=== PATIENT | male | born 1975 | race Caucasian/White ===

== ENCOUNTER 2019-07-14 18:14 | Inpatient (IN) ==
--- NOTE | 2019-07-14 18:51 | Emergency Department Note ---
Disposition Clinical Impression: Atrial fibrillation with RVR Disposition: Admitted As Inpatient Referrals: Toi Gayle DO [Primary Care Provider] - Forms: ED Satisfaction Letter Time of Disposition: 20:45 Arrhythmia/Palpitations HPI - General Chief Complaint: ED Arrhythmia/Palpitations Stated Complaint: new onset AFIB, VALERIA Time Seen by Provider: 07/14/19 18:30 Source: patient Mode of arrival: ambulatory Limitations: no limitations Nursing Notes Reviewed: Yes Vital Signs Reviewed: Yes - History of Present Illness HPI Narrative: Mr. Carrizales is a 44-year-old male past medical history presenting emergency department with new onset A. fib. He was found to be in A. fib at his PCPs office today, instructed to come the emergency department. He reports a 3 week history of intermittent dyspnea, fatigue, and intermittent cough. He denies chest pain or pressure, palpitations, lightheadedness, dizziness, falls, vision changes and going, weakness, abdominal pain, nausea, vomiting, diarrhea, dysuria, or edema. He did take some Mucinex earlier today to help with his cough. Denies taking other medications or [id number] supplements. He does admit to drinking 6-7 beers some nights after work, but does not drink every night. Denies any illicit drug use. - Related Data Home Medications Medication Instructions Recorded Confirmed No Known Home Drugs 07/14/19 07/14/19 Allergies Allergy/AdvReac Type Severity Reaction Status Date / Time No Known Allergies Allergy Verified 01/11/18 14:37 Review of Systems: Admits to intermittent dyspnea, cough, and fatigue. Denies chest pain or pressure, palpitations, lightheadedness, dizziness, falls, vision changes and going, weakness, abdominal pain, nausea, vomiting, diarrhea, dysuria, or edema Past Medical History - Past Medical History Medical history: Reports: no medical history Psychiatric history: Reports: no psych history - Social History Smoking Status: Never smoker Smokeless Tobacco Status: No Alcohol use: Reports: occasionally Drug use: Reports: none Physical Exam GEN: No acute distress, A&O3 HEAD: Atraumatic, normocephalic EYES: Pupils symmetric, sclera white, conjunctiva pink HEART: Irregularly irregular, normal S1 and S2, no murmurs LUNGS: Clear to auscultation bilaterally, no wheezes, rhonchi, or crackles ABD: Soft, nontender, nondistended, no guarding or rigidity EXT: No edema noted NEURO: No focal deficits, cooperative with exam - General General appearance: alert, in no apparent distress Course Vital Signs Temperature 98.8 F 07/14/19 18:37 Pulse Rate 173 07/14/19 18:37 Respiratory Rate 26 07/14/19 18:37 Blood Pressure 125/95 07/14/19 18:37 O2 Sat by Pulse Oximetry 97 07/14/19 18:37 Temperature 98.8 F 07/14/19 18:37 Pulse Rate 94 07/14/19 20:12 Respiratory Rate 16 07/14/19 20:12 Blood Pressure 120/82 07/14/19 20:12 O2 Sat by Pulse Oximetry 100 07/14/19 20:12 Oxygen Delivery Oxygen Delivery Room Air Arrhythmia/Palpitations - [facility] Narrative Medical decision making narrative: 44-year-old male with new onset A. fib with RVR. EKG shows A. fib with RVR, HR 179, and no ischemic changes. Labs show mild bilirubinemia, but otherwise unremarkable CBC, BMP, and hepatic panel. Troponin is negative. Chest x-ray with no acute cardiopulmonary abnormalities. Patient was placed on a Cardizem drip and heart rate decreased to 94, but remains in atrial fibrillation. CHADS2-VASc equals 0, so no anticoagulation will be started this time. At this time there is no clear etiology for his A. fib, but this may be related to his alcohol use, as he frequently will drink at least 6-7 beers on several nights per week. Patient will be admitted to the hospital for further cardiac evaluation, and initiation of oral medications. Discussed the case with the admitting hospitalist, Dr. Howe, who is accepting of this patient. - Lab Data Result diagrams: 07/14/19 18:45 07/14/19 18:45 Lab Results 07/14/19 07/14/19 07/14/19 Range/Units 18:45 18:45 18:45 WBC 8.1 (4.3-11.1) K/mcL RBC 4.92 (4.19-5.50) M/mcL Hgb 15.4 (12.9-16.9) g/dL Hct 46.3 (37.5-50.1) % MCV 94.1 (83.0-100.0) fL MCH 31.3 (28.0-33.3) pg MCHC 33.3 (31.6-35.5) g/dL RDW 12.3 (11.5-14.5) % Plt Count 162 (140-400) K/mcL MPV 11.9 (9.4-12.4) fL Immature Gran % 0.1 (0-4) % Seg Neutrophils % 55.5 % Lymphocytes % 34.9 % Monocytes % 8.4 % Eosinophils % 0.6 % Basophils % 0.5 % Neutrophils # 4.5 (1.6-8.9) K/mcL Lymphocytes # 2.8 (0.6-4.6) K/mcL Monocytes # 0.7 (0.0-1.3) K/mcL Eosinophils # 0.1 (0.0-0.6) K/mcL Basophils # 0.0 (0.0-0.2) K/mcL PT 13.9 H (9.4-12.1) Seconds INR 1.2 APTT 32.8 (26.0-36.0) Seconds Sodium 140 (136-145) mEq/L Potassium 4.5 (3.5-5.1) mEq/L Chloride 106 (98-107) mEq/L Carbon Dioxide 26 (23-29) mEq/L BUN 17 (6-20) mg/dL Creatinine 1.10 (0.70-1.30) mg/dL Est GFR ( Amer) > 60 (> 60) Est GFR (Non-Af Amer) > 60 (> 60) BUN/Creatinine Ratio 15 (6-26) Glucose 94 (70-105) mg/dL Calculated Osmolality 291 (280-300) Calcium 9.7 (8.6-10.3) mg/dL Total Bilirubin 1.8 H (0.3-1.0) mg/dL Direct Bilirubin 0.3 H (0.0-0.2) mg/dL Indirect Bilirubin 1.5 H (0.0-1.2) mg/dL AST 30 (13-39) Units/L ALT 46 (7-52) Units/L Alkaline Phosphatase 68 (34-104) Units/L Troponin I < 0.03 (< 0.04) ng/mL Serum Total Protein 7.4 (6.4-8.9) g/dL Albumin 4.8 (3.5-5.7) g/dL Globulin 2.6 (2.4-3.5) g/dL Albumin/Globulin Ratio 1.8 (1.1-2.2) TSH 2.254 (0.340-5.600) mcIU/mL
[2019-07-14 19:03] LABS: Basophils % 0.5 %; Eosinophils # 0.1 K/mcL (0.0-0.6); Eosinophils % 0.6 %; Hematocrit 46.3 % (37.5-50.1); Hemoglobin 15.4 g/dL (12.9-16.9); Immature Granulocytes % 0.1 % (0-4); Lymphocytes # 2.8 K/mcL (0.6-4.6); Lymphocytes % 34.9 %; Mean Corpuscular HGB Conc 33.3 g/dL (31.6-35.5); Mean Corpuscular Hemoglobin 31.3 pg (28.0-33.3); Mean Corpuscular Volume 94.1 fL (83.0-100.0); Mean Platelet Volume 11.9 fL (9.4-12.4); Monocytes # 0.7 K/mcL (0.0-1.3); Monocytes % 8.4 %; Neutrophils # 4.5 K/mcL (1.6-8.9); Platelet Count 162 K/mcL (140-400); Red Blood Count 4.92 M/mcL (4.19-5.50); Red Cell Distribution Width 12.3 % (11.5-14.5); Segmented Neutrophils % 55.5 %; White Blood Count 8.1 K/mcL (4.3-11.1)
[2019-07-14 19:09] LABS: INR 1.2; Prothrombin Time 13.9 Seconds (9.4-12.1)
[2019-07-14 19:12] LABS: Activated Partial Thrombo Time 32.8 Seconds (26.0-36.0)
[2019-07-14 19:23] LABS: Alanine Aminotransferase 46 Units/L (7-52); Albumin 4.8 g/dL (3.5-5.7); Albumin/Globulin Ratio 1.8 (1.1-2.2); Alkaline Phosphatase 68 Units/L (34-104); Aspartate Amino Transferase 30 Units/L (13-39); BUN/Creatinine Ratio 15 (6-26); Bilirubin,Direct 0.3 mg/dL (0.0-0.2); Bilirubin,Indirect 1.5 mg/dL (0.0-1.2); Bilirubin,Total 1.8 mg/dL (0.3-1.0); Blood Urea Nitrogen 17 mg/dL (6-20); Calcium 9.7 mg/dL (8.6-10.3); Carbon Dioxide 26 mEq/L (23-29); Chloride 106 mEq/L (98-107); Globulin 2.6 g/dL (2.4-3.5); Glucose 94 mg/dL (70-105); Osmolality,Calculated 291 (280-300); Potassium 4.5 mEq/L (3.5-5.1); Sodium 140 mEq/L (136-145); Total Protein 7.4 g/dL (6.4-8.9); Troponin I < 0.03 ng/mL (< 0.04); eGFR For African Americans > 60 (> 60); eGFR For Non-African Americans > 60 (> 60)
--- NOTE | 2019-07-14 19:28 | Emergency Department Note ---
Disposition Clinical Impression: Atrial fibrillation with RVR Disposition: Admitted As Inpatient Condition: Fair Forms: ED Satisfaction Letter Time of Disposition: 20:49 General Adult HPI - General Chief complaint: ED Arrhythmia/Palpitations Stated complaint: new onset AFIB, VALERIA Time Seen by Provider: 07/14/19 18:30 Source: patient Mode of arrival: ambulatory Limitations: no limitations - History of Present Illness Pain Scale: 0 - Related Data Home Medications Medication Instructions Recorded Confirmed No Known Home Drugs 07/14/19 07/14/19 Allergies Allergy/AdvReac Type Severity Reaction Status Date / Time No Known Allergies Allergy Verified 01/11/18 14:37 Past Medical History - Past Medical History Medical history: Reports: no medical history Psychiatric history: Reports: no psych history - Social History Smoking Status: Never smoker Smokeless Tobacco Status: No Alcohol use: Reports: occasionally Drug use: Reports: none Physical Exam - General Limitations: no limitations General appearance: alert, in no apparent distress Course Vital Signs Temperature 98.8 F 07/14/19 18:37 Pulse Rate 173 07/14/19 18:37 Respiratory Rate 26 07/14/19 18:37 Blood Pressure 125/95 07/14/19 18:37 O2 Sat by Pulse Oximetry 97 07/14/19 18:37 Temperature 98.8 F 07/14/19 18:37 Pulse Rate 94 07/14/19 20:12 Respiratory Rate 16 07/14/19 20:12 Blood Pressure 120/82 07/14/19 20:12 O2 Sat by Pulse Oximetry 100 07/14/19 20:12 Oxygen Delivery Oxygen Delivery Room Air Medical Decision Making - Lab Data Result diagrams: 07/14/19 18:45 07/14/19 18:45 Lab Results 07/14/19 07/14/19 07/14/19 Range/Units 18:45 18:45 18:45 WBC 8.1 (4.3-11.1) K/mcL RBC 4.92 (4.19-5.50) M/mcL Hgb 15.4 (12.9-16.9) g/dL Hct 46.3 (37.5-50.1) % MCV 94.1 (83.0-100.0) fL MCH 31.3 (28.0-33.3) pg MCHC 33.3 (31.6-35.5) g/dL RDW 12.3 (11.5-14.5) % Plt Count 162 (140-400) K/mcL MPV 11.9 (9.4-12.4) fL Immature Gran % 0.1 (0-4) % Seg Neutrophils % 55.5 % Lymphocytes % 34.9 % Monocytes % 8.4 % Eosinophils % 0.6 % Basophils % 0.5 % Neutrophils # 4.5 (1.6-8.9) K/mcL Lymphocytes # 2.8 (0.6-4.6) K/mcL Monocytes # 0.7 (0.0-1.3) K/mcL Eosinophils # 0.1 (0.0-0.6) K/mcL Basophils # 0.0 (0.0-0.2) K/mcL PT 13.9 H (9.4-12.1) Seconds INR 1.2 APTT 32.8 (26.0-36.0) Seconds Sodium 140 (136-145) mEq/L Potassium 4.5 (3.5-5.1) mEq/L Chloride 106 (98-107) mEq/L Carbon Dioxide 26 (23-29) mEq/L BUN 17 (6-20) mg/dL Creatinine 1.10 (0.70-1.30) mg/dL Est GFR ( Amer) > 60 (> 60) Est GFR (Non-Af Amer) > 60 (> 60) BUN/Creatinine Ratio 15 (6-26) Glucose 94 (70-105) mg/dL Calculated Osmolality 291 (280-300) Calcium 9.7 (8.6-10.3) mg/dL Total Bilirubin 1.8 H (0.3-1.0) mg/dL Direct Bilirubin 0.3 H (0.0-0.2) mg/dL Indirect Bilirubin 1.5 H (0.0-1.2) mg/dL AST 30 (13-39) Units/L ALT 46 (7-52) Units/L Alkaline Phosphatase 68 (34-104) Units/L Troponin I < 0.03 (< 0.04) ng/mL Serum Total Protein 7.4 (6.4-8.9) g/dL Albumin 4.8 (3.5-5.7) g/dL Globulin 2.6 (2.4-3.5) g/dL Albumin/Globulin Ratio 1.8 (1.1-2.2) TSH 2.254 (0.340-5.600) mcIU/mL Critical Care Time Critical Care Time: Yes Total Critical Care Time: 30 Attestation: 30 minutes of critical care time were spent with the patient atrial fibrillation with rapid ventricular response with a rate of 190 and Cardizem bolus, Cardizem drip, reassessed the patient, discussion with hospitalist for admission Attestation Statement - Attestation Attestation: I saw and evaluated the patient and and reviewed the resident's note/PA note/ELECTRONIC VIDEO GAMES SERVICER note, and I agree with the findings and plan. I personally supervised and was present for the vargas/critical portions of any procedures. The medical decision- making was reviewed with the PLATE MILL HAND/PA/Advanced Practice Nurse/Resident Physician. I agree with the documented findings, disposition and treatment plan as described except to the extent set forth below. The patient presents with intermittent shortness of breath for the last several weeks and on arrival here is found have atrial fibrillation with rapid ventricular response with a rate of 179 bpm and the patient's EKG does not show acute ischemic change. He does drink alcohol not on a daily basis but can drink up to 15 or 20 beers at a time and this could be from a holiday heart syndrome but we will also further evaluate with other labs including electrolytes, troponin, thyroid testing and the patient will be admitted based on the new onset and the high heart rate and the patient is given a Cardizem bolus 20 mg and a drip at 10 mg an hour and I did recheck on the patient and at this time his heart rate has decreased and is currently 97 bpm. He is here with his . 1928
[2019-07-14 19:36] LABS: Thyroid Stimulating Hormone 2.254 mcIU/mL (0.340-5.600)
[2019-07-15] MEDS ORDERED: Naloxone 0.4 MG/ML INJ IVP PRN (03:17)
[2019-07-15] MEDS ORDERED: *HR* LORazepam 2 MG/ML VIAL IVP PRN ×3 (03:19)
--- NOTE | 2019-07-15 03:24 | Internal Med History&Physical ---
Date of Encounter: 07/15/19 Time of Encounter: 03:03 Internal Medicine - H&P: HPI Chief complaint: New onset atrial fibrillation Admitted From: Emergency Dept Plans for Post Hospital Care: Home History of present illness: Mr. Carrizales is a 44 year old male Patient presented to the emergency department with a 3 week history of shortness of breath. He had been experiencing worsening shortness of breath particularly with exertion but denies feeling palpitations. He had never experienced anything quite like this before, and made an appointment to see his primary care physician. At that appointment, he was found to be in atrial fibrillation and was recommended to come to the emergency department for further evaluation. Emergency department vital signs notable for a pulse of 173, blood pressure 125/95, O2 saturation 97% on room air. CBC unremarkable BMP unremarkable Liver function tests indicated an elevated total bilirubin of 1.8, but normal AST and ALT. Initial troponin undetectable TSH 2.254 INR 1.2 Chest x-ray showed no acute abnormality. EKG: Atrial fibrillation with RVR, rate 179, QTC 477. In the emergency department patient was started on Cardizem drip, and admitted to the hospital for further management. Upon my evaluation, patient is resting comfortably in hospital bed in no acute distress. He denies chest pain, abdominal pain, nausea, vomiting, diarrhea and constipation. He denies previous history of cardiac problems. He also denies family history of cardiac problems as well including atrial fibrillation and heart attacks. He does not take medications regularly. He denies smoking and other drug use. He does however have significant alcohol use history, regularly drinking 7-8 beers daily. He denies having previously gone through alcohol withdrawal. He is a full code. Past Med Surg Social Fam HX - Past Medical History Medical history: no medical history Psychiatric history: no psych history - Social History Smoking Status: Never smoker Smokeless Tobacco Status: No Alcohol use: occasionally Drug use: none Internal Medicine - H&P: Meds No Known Home Drugs 07/14/19 [History] Allergy/AdvReac Type Severity Reaction Status Date / Time No Known Allergies Allergy Verified 01/11/18 14:37 All Systems PM: A 10-system review of systems was performed and is negative for pertinent findings except as documented above in the HPI. - Constitutional Vitals: Temp Pulse Resp BP Pulse Ox 97.8 F 98 16 130/85 99 07/14/19 22:06 07/14/19 22:06 07/14/19 22:06 07/14/19 22:06 07/14/19 23:39 General appearance: Present: cooperative, A&O X 3, pleasant, no acute distress, answers questions appropriately Exam: - - Head Head exam: Present: normal inspection - Eye Eye exam: Present: EOMI, normal appearance - Respiratory Respiratory exam: Present: CTAB. Absent: rales, respiratory distress, rhonchi, wheezes - Cardiovascular Cardiovascular exam: Present: irregular rhythm. Absent: diastolic murmur, sys tolic murmur - GI/Abdominal GI/Abdominal exam: Present: normal bowel sounds, soft. Absent: tenderness - Extremities Exam Extremities exam: Present: warm, radial pulses palpable and symmetrical. Absent: calf tenderness, pedal edema, tenderness - Neurological Exam Neurological exam: Present: no focal deficits, strengths equal and symetr throughout. Absent: motor sensory deficit, facial droop, speech deficit Additional comments: No tremor noted on exam - Skin Skin exam: Present: dry, normal color, warm Internal Med - H&P Results - Labs CBC & Chem 7: 07/14/19 18:45 07/14/19 18:45 Labs: Short CBC 07/14/19 Range/Units 18:45 WBC 8.1 (4.3-11.1) K/mcL Hgb 15.4 (12.9-16.9) g/dL Hct 46.3 (37.5-50.1) % Plt Count 162 (140-400) K/mcL Neutrophils # 4.5 (1.6-8.9) K/mcL BMP 07/14/19 18:45 Sodium 140 Potassium 4.5 Chloride 106 Carbon Dioxide 26 BUN 17 Creatinine 1.10 Glucose 94 Calcium 9.7 Cardiac Enzymes 07/14/19 Range/Units 18:45 Troponin I < 0.03 (< 0.04) ng/mL Liver Function 07/14/19 Range/Units 18:45 Total Bilirubin 1.8 H (0.3-1.0) mg/dL Direct Bilirubin 0.3 H (0.0-0.2) mg/dL AST 30 (13-39) Units/L ALT 46 (7-52) Units/L Alkaline Phosphatase 68 (34-104) Units/L Albumin 4.8 (3.5-5.7) g/dL - Impressions ITS Impressions Chest X-Ray 07/14/19 19:17 IMPRESSION: No acute abnormality. D/ / Woodrow Villeda MD / Woodrow Villeda MD Interpreting Provider: Woodrow Villeda MD - Assessment and Plan (1) Shortness of breath Current Visit: Yes Status: Acute Assessment and plan: Likely secondary to atrial fibrillation, now resolved. Oxygen saturation and vital signs have been stable since initiating atrial fibrillation treatment. Management of atrial fibrillation as below Continue to monitor (2) Atrial fibrillation with RVR Current Visit: Yes Status: Acute Assessment and plan: Rate has improved, but still atrial fibrillation. Patient was started on Car dizem by the emergency department. Cardiology consult in the morning Echocardiogram in the morning Cardiac monitoring Continue Cardizem (3) Alcohol use Current Visit: Yes Status: Acute Assessment and plan: Patient has history of alcohol use, usually 7-8 beers daily. Denies history of withdrawal. [facility] protocol Cardiac telemetry IV thiamine (4) Elevated liver enzymes Current Visit: Yes Status: Acute Assessment and plan: Patient's total bilirubin elevated at 1.8, likely secondary to alcohol use. No jaundice on exam. Repeat a.m. labs Consider right upper quadrant ultrasound (5) DVT prophylaxis Current Visit: Yes Status: Acute Assessment and plan: SCDs - Time Spent With Patient Total time spent is greater than 50% in coordination of care (as documented) at patient's floor/unit and/or counseling patient: Greater than 35 minutes
[2019-07-15 05:39] LABS: Hematocrit 40.4 % (37.5-50.1); Mean Corpuscular HGB Conc 33.9 g/dL (31.6-35.5); Mean Corpuscular Hemoglobin 31.4 pg (28.0-33.3); Mean Corpuscular Volume 92.7 fL (83.0-100.0); Mean Platelet Volume 11.9 fL (9.4-12.4); Platelet Count 131 K/mcL (140-400); Red Blood Count 4.36 M/mcL (4.19-5.50); Red Cell Distribution Width 12.3 % (11.5-14.5); White Blood Count 6.2 K/mcL (4.3-11.1)
[2019-07-15 05:56] LABS: Alanine Aminotransferase 38 Units/L (7-52); Albumin 3.9 g/dL (3.5-5.7); Albumin/Globulin Ratio 1.8 (1.1-2.2); Alkaline Phosphatase 64 Units/L (34-104); Aspartate Amino Transferase 26 Units/L (13-39); BUN/Creatinine Ratio 21 (6-26); Bilirubin,Direct 0.1 mg/dL (0.0-0.2); Bilirubin,Total 1.1 mg/dL (0.3-1.0); Blood Urea Nitrogen 22 mg/dL (6-20); Calcium 9.3 mg/dL (8.6-10.3); Carbon Dioxide 25 mEq/L (23-29); Chloride 105 mEq/L (98-107); Globulin 2.2 g/dL (2.4-3.5); Glucose 95 mg/dL (70-105); Osmolality,Calculated 293 (280-300); Potassium 3.9 mEq/L (3.5-5.1); Sodium 140 mEq/L (136-145); Total Protein 6.1 g/dL (6.4-8.9); eGFR For African Americans > 60 (> 60); eGFR For Non-African Americans > 60 (> 60)
[2019-07-15 06:21] LABS: Hemoglobin 13.7 g/dL (12.9-16.9)
[2019-07-15] MEDS ORDERED: Metoprolol XL (24 HR) Succ 25 MG TAB.ER.24H PO SCH (09:00)
--- NOTE | 2019-07-15 11:18 | Electrophysiology Consult Note ---
<Jovana Nelson - Last Filed: 07/15/19 11:25> Date of Encounter: 07/15/19 Time of Encounter: 11:00 Assessment and Plan (1) Atrial fibrillation with RVR Current Visit: Yes Status: Acute Newly detected afib with RVR; describes symptoms for at least 3 weeks which include orthopnea and palpitations. Troponin negative, TSH normal. No acute electrolyte abnormality. Reports heavy ETOH use 7-8 beers/day. Obtain TTE to evaluate structure and function. Recommend rate control for now, will add short-acting BB for now until HR are controlled. If EF reduced, will need to stop CCB. CHA2Ds Vasc=0. Echo pending. Will continue to follow. Discussion w patient/family: The assessment and plan as outlined above was discussed with the patient and/or family members who expressed understanding and agreement. All questions were answered. Thank you for involving us in the care of your patient. Please call with any questions. The patient will be discussed and reviewed with Dr. Rivas; changes to be made accordingly. History of Present Illness Consult date: 07/15/19 Requesting physician: Glen Howe Consult reason: Afib Chief complaint: Shortness of breath, palpitations History of present illness: Mr. Carrizales is a 44 year old male with no significant PMHx who presented to the ED with complaints of shortness of breath. He reports worsening symptoms over the past 3 weeks. Symptoms include palpitations and orthopnea. Upon arrival to the ED, ECG demonstrated atrial fibrillation with RVR, he was started on a cardizem gtt for rate control. He reports heavy ETOH use with 7-8 beers/day. No prior CV testing noted. Past Med Surg Social Fam HX - Past Medical History Attestation: Yes The following information was validated with the patient. Source: patient Medical history: no medical history Psychiatric history: no psych history - Past Surgical History Surgical History: non-contributory - Social History Smoking Status: Never smoker Smokeless Tobacco Status: No Alcohol use: occasionally Drug use: none - Family History Mother Living Status: Still Living Hx Family Cardiac Disorders: Yes (irregular heart rhythm) Father History Unknown: Yes Medications and Allergies No Known Home Drugs 07/14/19 [History] Allergy/AdvReac Type Severity Reaction Status Date / Time No Known Allergies Allergy Verified 01/11/18 14:37 All Systems Review: The remainder of the systems were reviewed and are negative - Cardiovascular Cardiovascular: as per HPI Physical Examination Vital Signs, Last 4 Hours Temp Pulse Resp BP Pulse Ox 07/15/19 07:44 97.3 F L 70 16 135/112 98 General: Conversant, No Apparent Distress HEENT: Atraumatic, Normocephaly, Mucus Membranes Moist Cardiac: Other (irregularly irregular) Lungs: Normal Breath Sounds Neuro: Alert and responsive Abdomen: Soft Skin: No rashes noted on visualized skin Musculoskeletal: No Chest Wall Tenderness Extremities: No Edema, Normal Pulses Results 07/15/19 05:14 07/15/19 05:14 Lab Results 07/14/19 07/14/19 07/14/19 18:45 18:45 18:45 WBC 8.1 Hgb 15.4 Hct 46.3 Plt Count 162 INR 1.2 APTT 32.8 Sodium 140 Potassium 4.5 Chloride 106 Carbon Dioxide 26 BUN 17 Creatinine 1.10 Glucose 94 Calcium 9.7 Total Bilirubin 1.8 H AST 30 ALT 46 Alkaline Phosphatase 68 Troponin I < 0.03 TSH 2.254 07/15/19 07/15/19 05:14 05:14 WBC 6.2 Hgb 13.7 D Hct 40.4 Plt Count 131 L INR APTT Sodium 140 Potassium 3.9 Chloride 105 Carbon Dioxide 25 BUN 22 H Creatinine 1.07 Glucose 95 Calcium 9.3 Total Bilirubin 1.1 H AST 26 ALT 38 Alkaline Phosphatase 64 Troponin I TSH Active Medications Heparin Sodium (Porcine) (Heparin) 5,000 unit SQ Q8HCO [facility]; Protocol Stop: 01/14/20 14:01 Diltiazem HCl 50 mg/ Sodium (Chloride) 50 mls @ 10 mls/hr IVC CONT ARMIN; Protocol Stop: 01/13/20 18:46 Last Infusion: 07/15/19 04:30 Dose: 7.5 mg/hr, 7.5 mls/hr Documented by: Thiamine HCl 100 mg/ Folic Acid 1 mg/ Multivitamins 10 ml / Sodium Chloride 511.2 mls @ 85.2 mls/hr IVPB DAILY@1800 ARMIN Stop: 07/17/19 23:59 Lorazepam (Ativan) 1 mg IVP Q1H PRN PRN Reason: Alcohol Withdrawal Stop: 01/14/20 03:20 Lorazepam (Ativan) 2 mg IVP Q4HR PRN PRN Reason: CIWA Score of 10-21 Stop: 01/14/20 03:20 Lorazepam (Ativan) 4 mg IVP Q4HR PRN PRN Reason: CIWA Score of 22-45 Stop: 01/14/20 03:20 Metoprolol Tartrate (Lopressor) 25 mg PO BID ARMIN Stop: 01/14/20 11:01 Naloxone HCl (Narcan) 0.4 mg IVP Q2MPRN PRN PRN Reason: SEE COMMENTS Stop: 01/14/20 03:18 - Imaging and Cardiology Echo: pending Other Results: 12 hour tele: avg HR=94 afib. Consult Discharge Plan - Plan Referrals: Toi Gayle DO [Primary Care Provider] - CHADS2-VASC Score - Score Age: Less than 65 Sex: Male CHF History: No Hypertension history: No Stroke/TIA/Thromboembolism Hx: No Vascular disease history: No Diabetes history: No Score: 0 <Hemant Rivas - Last Filed: 07/15/19 12:22> Date of Encounter: 07/15/19 - Attending Attestation I have personally performed a face to face evaluation on this patient. I have reviewed and agree with the care plan. History and Exam by me shows: Probably AF with RVR of several weeks duration. High risk for tachy- induced cardiomyopathy. Would rate control and eval. EF. Assessment and Plan Discussion w patient/family: The assessment and plan as outlined above was discussed with the patient and/or family members who expressed understanding and agreement. All questions were answered. Thank you for involving us in the care of your patient. Please call with any questions. History of Present Illness History of present illness: Mr. Carrizales is a 44 year old male All Systems Review: The remainder of the systems were reviewed and are negative Results 07/15/19 05:14 07/15/19 05:14 Lab Results 07/14/19 07/14/19 07/14/19 18:45 18:45 18:45 WBC 8.1 Hgb 15.4 Hct 46.3 Plt Count 162 INR 1.2 APTT 32.8 Sodium 140 Potassium 4.5 Chloride 106 Carbon Dioxide 26 BUN 17 Creatinine 1.10 Glucose 94 Calcium 9.7 Total Bilirubin 1.8 H AST 30 ALT 46 Alkaline Phosphatase 68 Troponin I < 0.03 TSH 2.254 07/15/19 07/15/19 05:14 05:14 WBC 6.2 Hgb 13.7 D Hct 40.4 Plt Count 131 L INR APTT Sodium 140 Potassium 3.9 Chloride 105 Carbon Dioxide 25 BUN 22 H Creatinine 1.07 Glucose 95 Calcium 9.3 Total Bilirubin 1.1 H AST 26 ALT 38 Alkaline Phosphatase 64 Troponin I TSH
[2019-07-15] MEDS ORDERED: *HR* Heparin 5,000 UNIT/ML VIAL SQ SCH (14:00)
[2019-07-15] MEDS ORDERED: Perflutren Lipid Microsphere 1.3 ML in 0.9 % Sodium Chloride 8.7 ML IVP ONE (14:18)
--- NOTE | 2019-07-15 16:14 | Event Note ---
Date of Encounter: 07/15/19 Time of Encounter: 16:12 I have seen and evaluated the patient at bedside. patient hemodynamically stable. CHADSVASC score 0. started on a bb, titrate cardizem drip off. will increase BB as needed for rate control. cardiology recommendations appreciated. will continue to follow up.
--- NOTE | 2019-07-15 17:34 | Electrocardiograph Report ---
[address] [address] Test Date: 2019-07-14 Pat Name: Kings Carrizales Department: [id number] Room: 2NE30 Gender: M Lard Renderer: : 1975 Requested By: Dru Villafuerte Order Number: [id number] Reading MD: Rayshawn Maria Measurements Intervals [place] Rate: 179 P: MT: QRS: -78 QRSD: 86 T: 52 QT: 276 QTc: 477 Interpretive Statements Atrial fibrillation with rapid V-rate Left anterior fascicular block Probable anteroseptal infarct, old Electronically Signed On 07-15-2019 17:32:12 EDT by Rayshawn Maria
[2019-07-15] MEDS: *HR* Enoxaparin 120 MG/0.8 ML SYRINGE SQ SCH (19:24)
[2019-07-15] MEDS: Thiamine (B-1) 100 MG, Folic Acid 1 MG, MVI, adult with vitamin K 10 ML in 0.9 % Sodi... IVPB SCH (20:40)
[2019-07-16] MEDS: *HR* Enoxaparin 120 MG/0.8 ML SYRINGE SQ SCH (06:38)
[2019-07-16] MEDS ORDERED: Verapamil 5 MG/2 ML VIAL ONE (07:18)
[2019-07-16] MEDS ORDERED: *HR* Midazolam HCl 2 MG/2 ML VIAL ONE (07:18)
[2019-07-16] MEDS ORDERED: 0.9 % Sodium Chloride 1,000 ML ONE (07:18)
[2019-07-16] MEDS ORDERED: Heparin 1,000 UNITS/500 mL 500 ML ONE (07:19)
[2019-07-16] MEDS ORDERED: Nitroglycerin 1,000 MCG/10 ML VIAL IV ONE (07:19)
[2019-07-16] MEDS ORDERED: Iopamidol 125 ML INFUS..BTL ONE (07:19)
[2019-07-16] MEDS ORDERED: *HR* Heparin 10,000 UNIT/10 ML VIAL ONE (07:19)
--- NOTE | 2019-07-16 08:39 | Pre-Sedation Evaluation ---
Pre-sedation evaluation - Pre-sedation checklist Date of procedure: 07/16/19 Procedure: heart cath Recent Vitals: Last Vital Signs Temp 98.2 F 07/16/19 06:57 Pulse 94 07/16/19 06:57 Resp 14 07/16/19 06:57 BP 97/70 07/16/19 06:57 Pulse Ox 95 07/16/19 06:57 H&P (including ROS) documented in medical record: Yes Previous reaction to sedatives/anesthetics: No Dietary Status: NPO after Midnight Airway Assessment: Patient can open mouth completely, TMJ function normal Dentition: No loose teeth or bridges Possible difficult airway: No ASA Classification *see protocol: CLASS II-Mild systemic disease Cardiac Registry (Cardio Only) - Functional Capacity Functional Capacity: >=4 METS without symptoms - Clincal Frailty Scale Clinical Frailty Scale: Well
[2019-07-16] MEDS ORDERED: Metoprolol XL (24 HR) Succ 50 MG TAB.ER.24H PO SCH (09:00)
--- NOTE | 2019-07-16 09:01 | Internal Med Progress Note ---
Hospitalist Progress Note - Encounter Date of Encounter: 07/16/19 Time of Encounter: 08:51 - Subjective Interval History: I have seen and evaluated the patient at bedside. patient reported the shortness of breath has resolved. denies chest pain, nausea or vomiting. HR continues to fluctuate from 100 at rest to the 140 with mild exertion. - Exam Vitals: Temp Pulse Resp BP Pulse Ox 98.2 F 94 14 97/70 95 07/16/19 06:57 07/16/19 06:57 07/16/19 06:57 07/16/19 06:57 07/16/19 06:57 Exam: Vitals: Reviewed General: Alert and oriented x4. In no distress Cardiovascular: Irregularly irregular, normal S1 & S2, no rubs, murmurs or gallops. Lungs: CTA b/l, no wheezes or crackles. Abdomen: Soft, non-tender, no rigidity. Extremities: No deformity, no edema or tenderness, no joint swelling or clubbing. Neurological: Normal cognition and motor skills. Rest of the physical exam is non contributory - Assessment and Plan (1) Atrial fibrillation with RVR Current Visit: Yes Status: Acute Assessment and Plan: HR sub-optimally controlled. CHADSVASC score 0 Plan will change metoprolol tartrate to succinate 50mg/PO daily. On cardizem drip. patient would benefit from a different drip (amiodarone drip) for rate control due to low EF 35-40%. drip selection per cardiology's discretion. scheduled for [facility] today. (2) Alcohol use Current Visit: Yes Status: Chronic Assessment and Plan: Patient not on withdrawals. Plan continue CIWA protocol. 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 patient is euvolemic. Plan: patient scheduled for LHC to r/o possible ischemic cause. c/w bb will add an qian if BP tolerates it. DVT Prophylaxis: Intermittent pneumatic compression for dvt prophylaxis. - Summary of Assessment and Plan Summary of Assessment and Plan: Patient to remain in the hospital due to a.fib with rvr, still on IV medications for rate control. scheduled for [facility] today. - Time Spent with Patient Total time spent is greater than 50% in coordination of care (as documented) at patient's floor/unit and/or counseling patient: Greater than 35 minutes (40) Plan of Care Discussed with: patient (his and the nurse.) Internal Medicine: Result - Labs CBC & Chem 7: 07/15/19 05:14 07/15/19 05:14 - ABG Interpretation ABG results: PT/INR, D-dimer PT 13.9 Seconds (9.4-12.1) H 07/14/19 18:45 - Impressions Impressions Echocardiogram 07/15/19 14:57 Impressions: LVEF 30-35%. Mildly dilated left ventricle. Indeterminate diastolic function. Definity echo contrast was used. There is no LV thrombus. Right ventricular size is normal with moderate reduction in systolic function. Mild mitral regurgitation. Mild tricuspid regurgitation. No pulmonary hypertension based on TR signal obtained. No prior echo for comparison. Left Ventricular Wall Motion: Rest Echo Findings The apex, apical inferior, mid inferior, basal inferior, apical anterior, mid anterior, basal anterior, apical septal, mid inferior septal, basal inferior septal, apical lateral, mid anterior lateral, basal anterior lateral, mid anterior septal, mid inferior lateral, basal anterior septal and basal inferior lateral kathleen were hypokinetic. Findings: Study Quality * Technically adequate exam. ECG Findings * Atrial fibrillation. Left Ventricle * LVEF 30-35%. * Mildly dilated left ventricle. * Indeterminate diastolic function. * Definity echo contrast was used. * There is no LV thrombus. Right Ventricle * Right ventricular size is normal with moderate reduction in systolic function. Left Atrium * Mildly dilated left atrium. Right Atrium * Normal right atrial size. Mitral Valve * Normal mitral valve structure. * No mitral stenosis. * Mild mitral regurgitation. Aortic Valve * No aortic regurgitation. * Aortic valve not well visualized. * No aortic stenosis. Tricuspid Valve * Normal tricuspid valve structure. * Mild tricuspid regurgitation. Pulmonic Valve * Pulmonic valve is not well visualized. * No pulmonic stenosis. * No pulmonic regurgitation. Pulmonary Artery * Pulmonary artery not well visualized. Aorta * Normally sized aortic root. Pericardium * There is no pericardial effusion present. Interatrial Septum * No evidence of PFO by color Doppler. IVC * The IVC is not well evaluated. Consult Discharge Plan - Plan Referrals: Toi Gayle DO [Primary Care Provider] - (3) CHF (congestive heart failure) Qualifiers: Heart failure type: systolic Heart failure chronicity: chronic Qualified Code(s): I50.22 - Chronic systolic (congestive) heart failure
[2019-07-16] MEDS ORDERED: Acetaminophen 325 MG TABLET PO PRN (09:32)
--- NOTE | 2019-07-16 09:32 | Event Note ---
Date of Encounter: 07/16/19 Time of Encounter: 09:31 - Cardiology Event Note Cath Completed LVEF 25% RCA normal LCA normal Recommend Medical therapy for af and chf.
--- NOTE | 2019-07-16 09:32 | Invasive Diagnostic Lab Proc ---
Name: Kings Carrizales Date of Study: 07/16/2019 Date: 1975 Ht: 76.0in Medical Record#: [id number] Age: 44 Wt: 260.15lb Gender: Male BSA: 2.48 Order #: [id number] BMI: 31.68 Physicians Procedure Physician: Arash Trujillo MD Referring MD: Referring MD: Staff Name Position Time In WoodruffSara RT (R) Monitor 08:58 AM Monse Givens RT (R) Scrub 08:58 AM Ruthann Moya RT (R) Scrub 08:58 AM Brain Vidales RN Crime Analyst 08:58 AM Procedures Performed Procedure L HRT ARTERY/VENTRICLE ANGIO Pre-Procedure Checklist Pt not NPO for procedure and MD aware. Blood Pressure: 97/70 Plan of Care Patient will tolerate the procedure without complications. Adequate level of comfort will be maintained. Hemodynamics will remain stable Patient will recover from procedure without complications. Respiratory function will be maintained. Cardiac rhythm will remain stable. Patient temperature will be maintained. Patient and/or family have verbalized understanding of the procedure. Patient Education Chief Complaint/Reason for Test: Cardiac Cath Developmental Category: Adult (18-64 years) Developmentally Appropriate for Age: Yes Learning Barriers: None Education Needs: Procedure Education Method: Verbal Information Taught: Cardiac Cath Educational Evaluation: Able to repeat information Intravenous Access Time IV Size Location DC'd Fluid/Drip Rate Units RN 07:12 AM 18g 1 1/4" Patent On Arrival Lt Antecubital 07:12 AM 20g 1 1/4" Patent On Arrival Lt Hand Allergies No Known Allergies Vital Signs Time BP (mmHg) HR (bpm) O2 Sat. RR (bpm) LOC 08:57 AM / % 5 = Fully awake and oriented or at pre-proc level 08:57 AM / % 4 = Oriented but drowsy 08:57 AM 85 / 63 144 92 % 21 09:04 AM 140 / 103 110 96 % 20 09:07 AM 139 / 104 106 96 % 19 09:12 AM 144 / 114 104 96 % 25 09:17 AM 132 / 104 123 95 % 32 Procedural Medications Time Medication Dose Units Method Given By 08:56 AM Oxygen 2 L/min nasal cannula Brain Vidales RN 08:58 AM Versed 2 mg Intravenous Brain Vidales RN 09:08 AM Lidocaine 2% 10 ml Subcutaneous Arash Trujillo MD ASA Classification: CLASS II- Mild systemic disease (i.e. well-controlled diabetes, hypertension, asthma, cigarette smoking) Jose Score Preprocedure Postprocedure Activity 2- Moves 4 extremities sustained head lift Activity 2- Moves 4 extremities sustained head lift Circulation 2- SBP +/= 20 points of pre-anesthetic level Circulation 2- SBP +/= 20 points of pre-anesthetic level Consciousness 2- Awake and alert oriented x 3 Consciousness 2- Awake and alert oriented x 3 O2 Saturation 2- Able to maintain O2 satruation of 92% on room air O2 Saturation 2- Able to maintain O2 satruation of 92% on room air Respiratory 2- Able to deep breathe and cough well Respiratory 2- Able to deep breathe and cough well Total Score 10 Total Score 10 Contrast Agent: Isovue Diagnostic Contrast: 75 ml Total Contrast: 75 ml Fluoro Dose: 15 mGy Procedure Log Time Note Enter By 08:56 AM CathStat 08:56 AM Vitals capture started with the following parameters, Patient=Adult, Interval=5 min, Initial Udsrhjzl=551 mmHg, Deflation Rate=3 mmHg, Cuff placed on Right Arm 08:56 AM Pt arrived to metallurgical lab technician 2 at 08:54 [facility] 08:56 AM Physician arrived 08:54 [facility] 08:56 AM ASA Class CLASS II- Mild systemic disease (i.e. well-controlled diabetes, hypertension, asthma, cigarette smoking) [facility] 08:56 AM Meet and grecarlos completed [facility] 08:56 AM Sign in performed according to hospital policy. Informed consent was obtained. [facility] :56 AM Time: 08:56 Oxygen on at 2 L/min per nasal cannula by Brain Vidales RN [facility] 0857 AM Time: 08:57 Patient comfortable and pain free: Yes [facility] 57 AM Time: 08:57LOC: 5 = Fully awake and oriented or at pre-proc level [facility] :57 AM Patient charges- Angio tray pack, Navilyst 3mm J, Pulse Oximetry and ACIST tubing and transducer [facility] 08:57 AM LC=375 bpm, NIBP=85/63 mmhg, SpO2=92.0 %, Resp=21 B/min 08:57 AM Procedure start 08:57 [email or web address] 08:57 AM Recorded ECG: PO=694 Condition=Condition 1 08:58 AM Hair removed from procedure site in holding area using clippers. Bilateral groin prepped with Chloraprep by Silvia العلي RN, then patient was draped. Skin intact. 08:58 AM Sara Woodruff RT (R) Position: Monitor Time in: :58 [facility] 08:58 AM Monse Givens RT (R) Position: Scrub Time in: :58 [facility] 08:58 AM Ruthann Moya RT (R) Position: Scrub Time in: :58 [facility] 08:58 AM Brain Vidales RN Position: Crime Analyst Time in: :58 [facility] 0858 AM Time: 08:58 Versed 2 mg Intravenous Given by Brain Vidales RN [facility] 09:04 AM QA=896 bpm, IKBR=983/103 mmhg, SpO2=96.0 %, Resp=20 B/min 09:04 AM Pressure channel 2 zeroed. 09:07 AM ML=985 bpm, JHEE=833/104 mmhg, SpO2=96.0 %, Resp=19 B/min 09:08 AM Time out was performed according to hospital policy. Conscious sedation and anesthesia was achieved (see medication log with in this report above) [facility]: Time: 09:08 10 ml Lidocaine 2% to right groin Subcutaneous Given by Arash Trujillo MD [facility] 09:10 AM Access obtained by percutaneous puncture. 6Fr 10cm Terumo [place] sheath placed in right Femoral artery. [id number] 09:10 AM 0.035 145cm Navilyst 3mmJ wire [id number] [facility] 09:11 AM 6Fr FL 4 catheter inserted over the wire DNC 09:11 AM LCA angiography performed in multiple views. [facility] 09:11 Recorded Pressure: Ao, YP=674, Condition=Condition 1 (Aorta) Ao 110/92/101 09:12 AM CI=057 bpm, HJRJ=789/114 mmhg, SpO2=96.0 %, Resp=25 B/min 09:12 AM Time: 08:57LOC: 4 = Oriented but drowsy 09:12 AM Time: 08:57 Patient comfortable and pain free: Yes [facility] 09:12 AM Recorded Pressure: Ao, RU=462, Condition=Condition 1 (Aorta) Ao 117/92/105 09:12 AM Catheter removed 09:13 AM 6Fr FR 4 catheter inserted over the wire [facility] 09:14 AM RCA angiography performed in multiple views. 09:14 AM Recorded Pressure: Ao, VX=883, Condition=Condition 1 (Aorta) Ao 113/90/102 09:14 AM Catheter removed 09:14 AM 6Fr Pigtail catheter inserted over the wire [facility] 09:16 AM Recorded Pressure: LV, EC=468, Condition=Condition 1 (Left Ventricle) LV 116/17 09:16 AM Recorded Pressure: LV, MT=508, Condition=Condition 1 (Left Ventricle) LV 118/14/17 09:16 AM Catheter crossed the aortic valve and was selectively placed in the left ventricle. Pressures recorded on pullback for left heart catheterization. [facility] 09:16 AM Bolus angiogram of left Ventricle complete: hand injection. 09:16 AM Recorded Pressure: LV, Ao, WR=653, Condition=Condition 1 (Left Ventricle) LV 100/6/15, (Aorta) Ao 126/37/89 09:17 AM Catheter removed [facility]:17 AM YE=170 bpm, LQAJ=658/104 mmhg, SpO2=95.0 %, Resp=32 B/min 09:17 AM Bolus angiogram of right Femoral complete: hand injection. [facility] 09:17 AM Procedure completed at 09:17 07/16/2019 [facility]:17 AM Did you address RANDA flow and Dominance? YesCoronary Dominance: right [facility] 09:18 AM Sign out completed: Radiation Dose 173.23 mGy, 15.3 Gy/cm2 Fluoro Time: 1.2 Isovue 370 - 200ml contrast 75 ml given by Arash Trujillo MD. Complications: None. The patient was discharged out of the label operator in stable condition. Sedation minutes 19. Cardiac Rehab Consult needed: No. Confirmed administered medications: Yes [facility] 09:18 AM Isovue 370 - 125ml,1 Bottle(s) used. [facility] 09:18 AM Arterial sheath pulled, Perclose closure device used and was Successful [id number] S/N. [facility] 09:18 AM Estimated Blood Loss: minimal [facility] 09:19 AM Post ECG Atrial Fibrillation [facility] 09:19 AM Post Blood Pressure 132/104 [facility] 09:19 AM Information taught Cardiac Cath and Perclose [facility] 09:19 AM Education needs Plan of Care, Procedure, and Responsibilities of Patient in Care [facility] 09:19 AM Learning barriers :None [facility] 09:19 AM Education Methods Verbal [facility] 09:19 AM Education evaluation Able to repeat information [facility] 09:19 AM Site status No bleeding/ No Hematoma - Rt Groin as reported by Monse Givens RT (R) at 09:19 [facility] 09:19 AM Opsite applied [facility] 09:22 AM Delay to floor No [facility] 09:22 AM Family placed in consult room. [facility] 09:25 AM Report given to Ritika SINGLETON Pt taken to E Room #30. 09:25 [facility] 09:25 AM Patient out of room: 09:25 [facility] Complications Complication None Hemodynamics Pressures Site Systolic/A Wave Diastolic/V Wave Mean AO 110 92 101 AO 117 92 105 AO 113 90 102 LV 116 14 17 LV 118 14 17 LV 100 6 15 AO 126 37 89 Post Procedure Information Blood Pressure: 132/104 mmHg Rhythm: Atrial Fibrillation Post procedural instructions were given Closure Device Time Device Success/Fail 07/16/2019 9:22:00 AM Perclose ProGlide Successful Site Checks Time Location Status Staff Sheath In? Note 09:19 AM Rt Groin No bleeding/ No Hematoma Monse Givens RT (R) Pulses Time Site Pre-Procedure Post-Procedure Note 07/16/2019 7:12:00 AM Bilateral radial 2+ per floor nurse documentation 07/16/2019 7:12:00 AM Bilateral DP & PT 2+ per floor nurse documentation Updated by Sara Woodruff RT (R) on 07/16/2019 9:26:20 AM electronically signed on 07/16/2019 9:26:56 AM with status of Final
--- NOTE | 2019-07-16 14:38 | Event Note ---
Date of Encounter: 07/16/19 Time of Encounter: 13:00 - Cardiology Event Note Seen and examined. [facility] completed--non-obstructive CAD. NICMP, likely tachycardia induced vs. ETOH. EF 30-35%. [id number] (?HTN, CHF). Discussed with Dr. Rivas, recommend full AC. Will start Xarelto 20 mg daily. Guillaume check: $10/month with card after first month free. Patient updated and agreeable, will d/c therapeutic lovenox. HR remain elevated, on Toprol XL 50 mg daily. Again, avoid use of CCB given CMP. Will discuss and review with Dr. Rivas. Goal HR less than 100. Recommend rate control strategy with anticoagulation for now with follow-up with Dr. Rivas in 3-4 weeks.
[2019-07-16] MEDS ORDERED: Metoprolol XL (24 HR) Succ 25 MG TAB.ER.24H PO ONE (16:00)
[2019-07-16] MEDS: *HR* Rivaroxaban 10 MG TABLET PO SCH (17:08)
[2019-07-16] MEDS: Thiamine (B-1) 100 MG, Folic Acid 1 MG, MVI, adult with vitamin K 10 ML in 0.9 % Sodi... IVPB SCH (17:56)
[2019-07-17] MEDS ORDERED: Metoprolol XL (24 HR) Succ 50 MG TAB.ER.24H PO SCH ×2 (09:00)
--- NOTE | 2019-07-17 11:10 | Internal Med Progress Note ---
Hospitalist Progress Note - Encounter Date of Encounter: 07/17/19 Time of Encounter: 11:12 - Subjective Interval History: I have seen and evaluated the patient at bedside. Patient reported feeling well, denies chest pain, reported feeling slightly short of breath this morning when he woke up. denies abdominal pain, nausea or vomiting. - Exam Vitals: Temp Pulse Resp BP Pulse Ox 98.2 F 103 18 150/94 96 07/17/19 06:46 07/17/19 06:46 07/17/19 06:46 07/17/19 09:31 07/17/19 06:46 Exam: Vitals: Reviewed General: Alert and oriented x4. In no distress Cardiovascular: Irregularly irregular, normal S1 & S2, no rubs, murmurs or gallops. Lungs: CTA b/l, no wheezes or crackles. Abdomen: Soft, non-tender, no rigidity. NABS in all 4 quadrants. Extremities: No edema. Neurological: No focal neurological abnormalities. Rest of the physical exam is non contributory - Assessment and Plan (1) Atrial fibrillation with RVR Current Visit: Yes Status: Acute Assessment and Plan: HR sub-optimally controlled. CHADSVASC score 2 Plan increase metoprolol to 100mg/PO daily. on xarelto 20mg/PO daily for secondary stroke prevention cardiology recommendations appreciated. patient advised about making an appointment to have a sleep study as outpatient. (2) Alcohol use Current Visit: Yes Status: Chronic Assessment and Plan: dc CIWA protocol. patient has not received any medication from the CIWA protocol. no signs of withdrawals. (3) CHF (congestive heart failure) Current Visit: Yes Status: Chronic Assessment and Plan: Patient is euvolemic. c/w metoprolol and lisinopril fluids restriction to 1.5 litters a day strict intake and output plus daily weight. DVT Prophylaxis: Intermittent pneumatic compression. - Summary of Assessment and Plan Summary of Assessment and Plan: Patient to remain in the hospital as HR is not well controlled. titrating oral bb up. - Time Spent with Patient Total time spent is greater than 50% in coordination of care (as documented) at patient's floor/unit and/or counseling patient: Greater than 35 minutes (40) Plan of Care Discussed with: patient (and the nurse.) Internal Medicine: Result - Labs CBC & Chem 7: 07/15/19 05:14 07/15/19 05:14 - ABG Interpretation ABG results: PT/INR, D-dimer PT 13.9 Seconds (9.4-12.1) H 07/14/19 18:45 Consult Discharge Plan - Plan Referrals: Toi Gayle DO [Primary Care Provider] - (3) CHF (congestive heart failure) Qualifiers: Heart failure type: systolic Heart failure chronicity: chronic Qualified Code(s): I50.22 - Chronic systolic (congestive) heart failure
[2019-07-17] MEDS ORDERED: Metoprolol XL (24 HR) Succ 50 MG TAB.ER.24H PO ONE (11:39)
--- NOTE | 2019-07-17 11:44 | Cardiology Progress Note ---
Date of Encounter: 07/17/19 Time of Encounter: 11:42 Assessment and Plan (1) Atrial fibrillation with RVR Current Visit: Yes Status: Acute Newly detected afib with RVR; describes symptoms for at least 3 weeks which include orthopnea and palpitations. Troponin negative, TSH normal. No acute electrolyte abnormality. Reports heavy ETOH use 7-8 beers/day. TTE LVEF 30-35%. Mildly dilated LV. Indeterminate diastolic function. Definity echo contrast was used. There is no LV thrombus. RV size is normal with moderate reduction in systolic function. Mild MR. Mild TR. No phtn. [id number]=[id number] (?HTN, CHF). Discussed with Dr. Rivas, recommended full AC. Will start Xarelto 20 mg daily. Guillaume check: $10/month with card after first month free. Patient updated and agreeable. Currently on Toprol XL 100mg daily and still RVR. Will increase Toprol XL to 150mg daily. Goal HR <100bpm. If cannot rate control, may need to have EDIS guided DCCV prior to d/c. Avoid CCB given CMP. Will continue to follow. (2) NICM (nonischemic cardiomyopathy) Current Visit: Yes Status: Acute LHC completed--non-obstructive CAD. NICMP, likely tachycardia induced vs. ETOH. EF 30-35%. Right femoral access site healing well. No bleeding, hematoma or ecchymosis noted. Euvolemic on exam. Continue BB and ACEi. Discussion w patient/family: The assessment and plan as outlined above was discussed with the patient and/or family members who expressed understanding and agreement. All questions were answered. Thank you for involving us in the care of your patient. Please call with any questions. I will discuss all the above with Dr. Sara Rivas and make changes as necessary. Subjective Principal diagnosis: CMP, A-Fib Interval history: Reports shortness of breath this AM. Denies chest pain. Objective Vital Signs, Last 4 Hours Temp Pulse Resp BP Pulse Ox 07/17/19 11:16 98.3 F 105 16 155/90 97 07/17/19 09:31 150/94 Vital Signs Temp Pulse Resp BP Pulse Ox 07/17/19 11:16 98.3 F 105 16 155/90 97 07/17/19 09:31 150/94 07/17/19 06:46 98.2 F 103 18 150/94 96 07/17/19 05:13 98.9 F 100 14 133/94 96 07/17/19 00:29 98.2 F 97 15 130/98 91 07/16/19 20:55 98.3 F 120 16 142/99 95 07/16/19 20:44 95 07/16/19 20:22 98.3 F 130 16 142/99 95 07/16/19 15:41 98.6 F 120 14 118/99 97 07/16/19 14:00 92 141/100 95 07/16/19 12:00 75 131/86 94 Intake and Output 07/16/19 07/17/19 07/17/19 23:59 07:59 15:59 Intake Total 240 / 877.2 511.2 / 511.2 Output Total 0 / 0 0 / 0 Balance 240 / 877.2 511.2 / 511.2 Intake: IV Fluids 511.2 / 511.2 Cardizem 50 MG In 0.9 % Sodium 0 / 0 Chloride 40 ML @ 10 MG/HR 10 mls/hr IVC CONT [facility] Rx#: [id number] Vitamin B-1 100 MG Folvite 1 MG 511.2 / 511.2 M.v.i. Adult 10 ml In 0.9 % Sodium Chloride 500 ML @ 85.2 mls/hr IVPB DAILY@1800 [facility] Rx#: [id number] Oral 240 / 360 0 / 0 Output: Urine 0 / 0 0 / 0 Other: Meal Dinner Percent of Meal Consumed 90% Weight 117.8 kg Patient Weight 07/17/19 23:59 Weight 117.8 kg General: Conversant, No Apparent Distress HEENT: Atraumatic, Normocephaly, Mucus Membranes Moist Neck: Normal carotid pulses Cardiac: Other (irregularly irregular) Lungs: Normal Breath Sounds, No Wheeze, Rales, Rhonchi Neuro: Alert and responsive, No focal deficits noted Abdomen: Soft, Non-Tender Skin: Other (right femoral access site healing well. No bleeding, hematoma or ecchymosis noted.) Musculoskeletal: No Chest Wall Tenderness Extremities: No Clubbing, No Cyanosis, No Edema, Normal Pulses Results 07/15/19 05:14 07/15/19 05:14 Active Medications Acetaminophen (Tylenol) 650 mg PO Q6HR PRN PRN Reason: Mild Pain Stop: 01/15/20 09:33 Thiamine HCl 100 mg/ Folic Acid 1 mg/ Multivitamins 10 ml / Sodium Chloride 511.2 mls @ 85.2 mls/hr IVPB DAILY@1800 [facility] Stop: 07/17/19 23:59 Last Infusion: 07/17/19 00:01 Dose: Infused Documented by: Lisinopril (Zestril) 5 mg PO DAILY [facility]; Protocol Stop: 01/16/20 09:01 Last Admin: 07/17/19 09:22 Dose: 5 mg Documented by: Metoprolol Succinate (Toprol Xl) 100 mg PO DAILY [facility] Stop: 01/16/20 09:01 Last Admin: 07/17/19 09:22 Dose: 100 mg Documented by: Metoprolol Succinate (Toprol Xl) 50 mg PO ONCE ONE Stop: 07/17/19 11:40 Naloxone HCl (Narcan) 0.4 mg IVP Q2MPRN PRN PRN Reason: SEE COMMENTS Stop: 01/14/20 03:18 Rivaroxaban (Xarelto) 20 mg PO 1700 [facility] Stop: 01/15/20 17:01 Last Admin: 07/16/19 17:08 Dose: 20 mg Documented by: - Imaging and Cardiology Echo: report reviewed Cardiac cath: report reviewed - EKG Interpretation EKG results cardiology: other (12 hr tele AVG HR 104, A-Fib) Consult Discharge Plan - Plan Referrals: Toi Gayle DO [Primary Care Provider] -
[2019-07-17] MEDS ORDERED: Metoprolol XL (24 HR) Succ 25 MG TAB.ER.24H PO ONE (16:00)
[2019-07-17] MEDS: *HR* Rivaroxaban 10 MG TABLET PO SCH (17:23)
[2019-07-17] MEDS: Thiamine (B-1) 100 MG, Folic Acid 1 MG, MVI, adult with vitamin K 10 ML in 0.9 % Sodi... IVPB SCH (18:27)
[2019-07-18] MEDS ORDERED: Metoprolol XL (24 HR) Succ 50 MG TAB.ER.24H PO SCH (09:00)
--- NOTE | 2019-07-18 11:00 | Cardiology Progress Note ---
Date of Encounter: 07/18/19 Time of Encounter: 10:00 Assessment and Plan (1) Atrial fibrillation with RVR Current Visit: Yes Status: Acute Newly detected afib with RVR; describes symptoms for at least 3 weeks which include orthopnea and palpitations. Troponin negative, TSH normal. No acute electrolyte abnormality. Reports heavy ETOH use 7-8 beers/day. TTE LVEF 30-35%. Mildly dilated LV. Indeterminate diastolic function. Definity echo contrast was used. There is no LV thrombus. RV size is normal with moderate reduction in systolic function. Mild MR. Mild TR. No phtn. [id number]=[id number] (?HTN, CHF). Discussed with Dr. Rivas, recommended full AC. Xa relto 20 mg daily. Guillaume check: $10/month with card after first month free. Patient updated and agreeable. Currently on Toprol XL 150mg daily and still RVR. Will increase Toprol XL to 150mg daily. Goal HR <100bpm. D/w Dr. Rivas; plan on EDIS guided DCCV in AM. Avoid CCB given CMP. NPO after MN except medications. Will continue to follow. Discussion w patient/family: The assessment and plan as outlined above was discussed with the patient and/or family members who expressed understanding and agreement. All questions were answered. Thank you for involving us in the care of your patient. Please call with any questions. The patient will be discussed and reviewed with Dr. Rivas; changes to be made accordingly. Subjective Principal diagnosis: CMP, A-Fib Interval history: Seen and examined. No new CV complaints overnight. Remains in RVR Objective Vital Signs, Last 4 Hours Temp Pulse Resp BP Pulse Ox 07/18/19 10:32 97.9 F 103 16 126/82 93 General: Conversant HEENT: Atraumatic, Normocephaly Cardiac: Other (tachycardiac; irregularly irregular) Lungs: Normal Breath Sounds Neuro: Alert and responsive Abdomen: Soft Skin: No rashes noted on visualized skin Musculoskeletal: No Chest Wall Tenderness Extremities: No Edema, Normal Pulses Results 07/15/19 05:14 07/15/19 05:14 Active Medications Acetaminophen (Tylenol) 650 mg PO Q6HR PRN PRN Reason: Mild Pain Stop: 01/15/20 09:33 Lisinopril (Zestril) 5 mg PO DAILY ARMIN; Protocol Stop: 01/16/20 09:01 Last Admin: 07/18/19 08:50 Dose: 5 mg Documented by: Metoprolol Succinate (Toprol Xl) 150 mg PO DAILY [facility] Stop: 01/17/20 09:01 Last Admin: 07/18/19 08:50 Dose: 150 mg Documented by: Naloxone HCl (Narcan) 0.4 mg IVP Q2MPRN PRN PRN Reason: SEE COMMENTS Stop: 01/14/20 03:18 Rivaroxaban (Xarelto) 20 mg PO 1700 [facility] Stop: 01/15/20 17:01 Last Admin: 07/17/19 17:23 Dose: 20 mg Documented by: - Imaging and Cardiology Echo: report reviewed Cardiac cath: report reviewed Other Results: 12 hour tele: avg QV=058 - EKG Interpretation EKG results cardiology: personally reviewed Consult Discharge Plan - Plan Referrals: Toi Gayle DO [Primary Care Provider] -
[2019-07-18] MEDS ORDERED: Metoprolol XL (24 HR) Succ 50 MG TAB.ER.24H PO ONE (11:04)
--- NOTE | 2019-07-18 12:09 | Internal Med Progress Note ---
Hospitalist Progress Note - Encounter Date of Encounter: 07/18/19 Time of Encounter: 12:07 - Subjective Interval History: I have seen and evaluated the patient at bedside. Patient reported doing well. denies chest pain, nausea, vomiting or abdominal pain. - Exam Vitals: Temp Pulse Resp BP Pulse Ox 97.9 F 103 16 126/82 93 07/18/19 10:32 07/18/19 10:32 07/18/19 10:32 07/18/19 10:32 07/18/19 10:32 Exam: Vitals: Reviewed General: Alert and oriented x4. In no distress Cardiovascular: Irregularly irregular, normal S1 & S2, no rubs, murmurs or gallops. Lungs: CTA b/l, no wheezes or crackles. Abdomen: Soft, non-tender, no rigidity. NABS in all 4 quadrants. Extremities: No edema. Neurological: No focal neurological abnormalities. Rest of the physical exam is non contributory - Assessment and Plan (1) Atrial fibrillation with RVR Current Visit: Yes Status: Acute Assessment and Plan: HR sub-optimally controlled. CHADSVASC score 2 Plan c/w metoprolol to 150mg/PO daily. on xarelto 20mg/PO daily for secondary stroke prevention plan on EDIS guided DCCV in AM Cardiology recommendation appreciated NPO at midnight (2) Alcohol use Current Visit: Yes Status: Chronic (3) CHF (congestive heart failure) Current Visit: Yes Status: Chronic Assessment and Plan: Patient is euvolemic. On metoprolol and lisinopril. fluids restriction to 1.5 litters a day strict intake and output plus daily weight. DVT Prophylaxis: Intermittent pneumatic compression for dvt prophylaxis. - Summary of Assessment and Plan Summary of Assessment and Plan: Patient to remain in the hospital scheduled for EDIS guided DCCV in AM - Time Spent with Patient Total time spent is greater than 50% in coordination of care (as documented) at patient's floor/unit and/or counseling patient: Greater than 35 minutes (40) Plan of Care Discussed with: patient (and the nurse.) Internal Medicine: Result - Labs CBC & Chem 7: 07/15/19 05:14 07/15/19 05:14 - ABG Interpretation ABG results: PT/INR, D-dimer PT 13.9 Seconds (9.4-12.1) H 07/14/19 18:45 Consult Discharge Plan - Plan Referrals: Toi Gayle DO [Primary Care Provider] - (3) CHF (congestive heart failure) Qualifiers: Heart failure type: systolic Heart failure chronicity: chronic Qualified Code(s): I50.22 - Chronic systolic (congestive) heart failure
[2019-07-18] MEDS: *HR* Rivaroxaban 10 MG TABLET PO SCH (16:20)
[2019-07-19] MEDS ORDERED: Lidocaine Viscous Oral Soln 15 ML SOLUTION MM PRN (07:35)
[2019-07-19] MEDS ORDERED: 0.9 % Sodium Chloride 500 ML IVC ONE (07:35)
[2019-07-19] MEDS: *HR* FentaNYL (PF) 100 MCG/2 ML VIAL IVP PRN ×2 (08:25→08:30)
[2019-07-19] MEDS: *HR* Midazolam HCl 5 MG/5 ML VIAL IVP PRN ×3 (08:25→08:43)
[2019-07-19] MEDS ORDERED: Metoprolol XL (24 HR) Succ 50 MG TAB.ER.24H PO SCH (09:00)
--- NOTE | 2019-07-19 09:59 | Cardiology Progress Note ---
Date of Encounter: 07/19/19 Time of Encounter: 09:30 Assessment and Plan (1) Atrial fibrillation with RVR Current Visit: Yes Status: Acute Newly detected afib with RVR; describes symptoms for at least 3 weeks which include orthopnea and palpitations. Troponin negative, TSH normal. No acute electrolyte abnormality. Reports heavy ETOH use 7-8 beers/day. TTE LVEF 30-35%. Mildly dilated LV. Indeterminate diastolic function. Definity echo contrast was used. There is no LV thrombus. RV size is normal with moderate reduction in systolic function. Mild MR. Mild TR. No phtn. [id number]=2-0 (?HTN, CHF). Discussed with Dr. Rivas, recommended full AC. Xa relto 20 mg daily. Guillaume check: $10/month with card after first month free. Educated patient and family on risks and benefits of AC. S/p EDIS/DCCV today with successful conversion to NSR. HR 50-60s during eval. Will decrease Toprol XL to 50mg QD. Avoid CCB given CMP. Cardiology will arrange f/u in 1 month and signoff at this time, please re- consult as needed. (2) NICM (nonischemic cardiomyopathy) Current Visit: Yes Status: Acute LHC completed--non-obstructive CAD. NICMP, likely tachycardia induced vs. ETOH. EF 30-35%. Right femoral access site healing well. No bleeding, hematoma or ecchymosis noted. Euvolemic on exam. Continue BB and ACEi. Will repeat echo in 3 months. Discussion w patient/family: The assessment and plan as outlined above was discussed with the patient and/or family members who expressed understanding and agreement. All questions were answered. Thank you for involving us in the care of your patient. Please call with any questions. Subjective Principal diagnosis: CMP, A-Fib Interval history: Seen post EDIS/DCCV this morning, still slightly drowsy but otherwise no complaints. Objective Vital Signs, Last 4 Hours Temp Pulse Resp BP Pulse Ox 07/19/19 07:41 97.8 F 111 18 134/100 97 07/19/19 07:21 97.9 F 107 16 109/94 94 General: Conversant, No Apparent Distress HEENT: Atraumatic, Normocephaly, Mucus Membranes Moist Neck: No JVD, Normal carotid pulses Cardiac: Reg Rate and Rhythm, Normal S1 and S2, No Murmur Lungs: Normal Breath Sounds, No Wheeze, Rales, Rhonchi Neuro: Alert and responsive, No focal deficits noted Abdomen: Soft, Non-Tender Skin: No rashes noted on visualized skin Musculoskeletal: No Chest Wall Tenderness Extremities: No Clubbing, No Cyanosis, No Edema, Normal Pulses Results 07/15/19 05:14 07/15/19 05:14 - Imaging and Cardiology Echo: report reviewed Consult Discharge Plan - Plan Referrals: Toi Gayle DO [Primary Care Provider] - CHADS2-VASC Score - Score Age: Less than 65 Sex: Male CHF History: Yes Hypertension history: Yes Stroke/TIA/Thromboembolism Hx: No Vascular disease history: No Diabetes history: No Score: 2
--- NOTE | 2019-07-19 10:41 | Discharge Summary ---
Date of Encounter: 07/19/19 Time of Encounter: 10:39 - Discharge Diagnosis (1) Atrial fibrillation with RVR Priority: Primary Status: Resolved (2) Alcohol use Priority: Secondary Status: Chronic (3) CHF (congestive heart failure) Priority: Secondary Status: Chronic Qualifiers: Heart failure type: systolic Heart failure chronicity: chronic Qualified Code(s): I50.22 - Chronic systolic (congestive) heart failure Hospital course: Mr. Carrizales is a 44 year old male No significant PMH. Patient presented to the emergency department with a 3 week history of shortness of breath. He had been experiencing worsening shortness of breath particularly with exertion but denies feeling palpitations. Patient was found to be on A.fib with RvR. Admitted to the hospital on A.fib with rvr. Patient was started on a cardizem drip and a BB, underwent LHC for evaluation of possible CAD. LHC LVEF 25%. RCA normal. LCA normal. Patient underwent EDIS w/ cardioversion Impressions: LVEF 25%. Mildly dilated LV, severe global hypokinesis. Right ventricle was normal in size and systolic function. LA appendage is normal in appearance. No thrombus. Successful cardioversion using 250 Joules. with successful conversion to NSR. Patient is being discharged home on a bb and xarelto for secondary stroke prevention. Recommended to follow up with cardiology within a month of hospital discharge. Recommended to make and appointment to have a sleep study done. - Time Spent with Patient Total time spent providing and/or coordinating discharge services: Time spent: Greater than 30 minutes (35) - Discharge Medications Prescriptions: New Metoprolol XL (24 HR) Succ [Toprol Xl] 50 mg PO DAILY 30 Days #30 tab.er.24h Rivaroxaban [Xarelto] 20 mg PO 1700 30 Days #30 tablet Lisinopril [Zestril] 5 mg PO DAILY 30 Days #30 tablet Home Medications: Lisinopril [Zestril] 5 mg PO DAILY 30 Days #30 tablet 07/19/19 [Rx] Metoprolol XL (24 HR) Succ [Toprol Xl] 50 mg PO DAILY 30 Days #30 tab.er.24h 07/19/19 [Rx] Rivaroxaban [Xarelto] 20 mg PO 1700 30 Days #30 tablet 07/19/19 [Rx] Allergies/Adverse Reactions: Allergy/AdvReac Type Severity Reaction Status Date / Time No Known Allergies Allergy Verified 01/11/18 14:37 Date of admission: 07/16/19 14:19 Primary care physician: Toi Gayle DO Consults: 07/15/19 03:29 Consult to Cardiology [CONS] Routine Comment: Consulting Provider: Cardiology Edda Reason for Consult: New onset atrial fibrillation Call Completed: No - Constitutional Vitals: Temp Pulse Resp BP Pulse Ox 97.8 F 111 18 134/100 97 07/19/19 07:41 07/19/19 07:41 07/19/19 07:41 07/19/19 07:41 07/19/19 07:41 General appearance: Present: cooperative, A&O X 3, pleasant, no acute distress, answers questions appropriately Exam: Vitals: Reviewed General: Alert and oriented x4. In no distress Cardiovascular: Irregularly irregular, normal S1 & S2, no rubs, murmurs or gallops. Lungs: CTA b/l, no wheezes or crackles. Abdomen: Soft, non-tender, no rigidity. NABS in all 4 quadrants. Extremities: No edema. Neurological: No focal neurological abnormalities. Rest of the physical exam is non contributory - Patient Status Disposition: Home, Self-Care Condition: Good Functional capacity at discharge: independent ambulation Overall status at discharge: patient is back to baseline - Discharge Instructions Follow Up With: Toi Gayle DO [Primary Care Provider] - - Diet and Activity Activity: resume usual activities as tolerated Diet: low salt diet
[2019-07-19 11:09] VITALS: BP 108/82
[2019-07-19] MEDS ORDERED: FLU Vac QV 19-20 (6Month+)/PF 0.5 ML SYRINGE IM ONE (13:55)
--- NOTE | 2019-07-19 18:33 | Electrocardiograph Report ---
[address] [address] Test Date: 2019-07-19 Pat Name: Kings Carrizales Department: 111 Room: 2N0 Gender: M Outcomes Specialist: : 1975 Requested By: Gonzalo Hartman Order Number: [id number] Reading MD: Rayshawn Maria Measurements Intervals [place] Rate: 119 P: [place]: 0 QRS: -63 QRSD: 108 T: -26 QT: 329 QTc: 400 Interpretive Statements ATRIAL FIBRILLATION WITH RAPID VENTRICULAR RESPONSE MARKED LEFT AXIS DEVIATION INCOMPLETE RIGHT BUNDLE BRANCH BLOCK Electronically Signed On 07-19-2019 16:49:53 EDT by Rayshawn Maria
--- NOTE | 2019-07-19 18:33 | Electrocardiograph Report ---
[address] [place], [place] [address] Test Date: 2019-07-19 Pat Name: Kings Carrizales Department: 101 Room: 2NE30 Gender: M Woods Superintendent: BEV : 1975 Requested By: Gonzalo Hartman Order Number: [id number] Reading MD: Rayshawn Maria Measurements Intervals [place] Rate: 53 P: 14 [place]: 168 QRS: -44 QRSD: 114 T: -29 QT: 422 QTc: 404 Interpretive Statements SINUS BRADYCARDIA POSSIBLE LEFT ATRIAL ENLARGEMENT MARKED LEFT AXIS DEVIATION INCOMPLETE RIGHT BUNDLE BRANCH BLOCK MODERATE T-WAVE ABNORMALITY, CONSIDER ANTERIOR ISCHEMIA Electronically Signed On 07-19-2019 16:51:40 EDT by Rayshawn Maria
== END 2019-07-19 14:19 | disposition home or self-care (01) | DRG 287 ==
LOC: EMEROOARM 18:14 → 2NENU 18:14 → SUATTDRO 07-16 14:19
PROVIDERS: ADMIT Family Medicine; ATTEND Internal Medicine

== ENCOUNTER 2022-04-23 13:33 | Observation (INO) ==
[2022-04-23 14:19] LABS: Basophils % 0.3 %; Eosinophils # 0.1 K/mcL (0.0-0.6); Hematocrit 47.2 % (37.5-50.1); Immature Granulocytes % 0.3 % (0-4); Lymphocytes # 2.5 K/mcL (0.6-4.6); Lymphocytes % 39.6 %; Mean Corpuscular HGB Conc 33.9 g/dL (31.6-35.5); Mean Corpuscular Hemoglobin 31.6 pg (28.0-33.3); Mean Corpuscular Volume 93.1 fL (83.0-100.0); Mean Platelet Volume 11.1 fL (9.4-12.4); Monocytes # 0.4 K/mcL (0.0-1.3); Monocytes % 6.6 %; Neutrophils # 3.2 K/mcL (1.6-8.9); Platelet Count 144 K/mcL (140-400); Red Blood Count 5.07 M/mcL (4.19-5.50); Segmented Neutrophils % 52.2 %; White Blood Count 6.2 K/mcL (4.3-11.1)
[2022-04-23 14:43] LABS: BUN/Creatinine Ratio 17 (6-26); Blood Urea Nitrogen 18 mg/dL (6-20); Calcium 9.7 mg/dL (8.6-10.3); Carbon Dioxide 28 mEq/L (23-29); Chloride 102 mEq/L (98-107); Glucose 82 mg/dL (70-105); Osmolality,Calculated 287 (280-300); Potassium 4.3 mEq/L (3.5-5.1); Sodium 138 mEq/L (136-145); Troponin I < 0.03 ng/mL (< 0.04); eGFR For African Americans > 60 (> 60); eGFR For Non-African Americans > 60 (> 60)
[2022-04-23] MEDS ORDERED: *HR* Metoprolol 5 MG/5 ML VIAL IVP ONE (15:39)
[2022-04-23] MEDS ORDERED: *HR* Rivaroxaban 10 MG TABLET PO ONE (16:00)
[2022-04-23] MEDS ORDERED: Melatonin 3 MG TABLET PO PRN (16:24)
[2022-04-23] MEDS ORDERED: Ondansetron 4 MG/2 ML VIAL IVP PRN (16:24)
[2022-04-23] MEDS ORDERED: Acetaminophen 325 MG TABLET PO PRN (16:24)
[2022-04-23] MEDS ORDERED: MOM Conc 10 ML UD.LIQ PO PRN (16:24)
[2022-04-23] MEDS ORDERED: Mag Hydrox/Al Hydrox/Simeth 30 ML UDC PO PRN (16:24)
[2022-04-23] MEDS ORDERED: Naloxone 0.4 MG/ML INJ IVP PRN (16:24)
[2022-04-23 16:44] LABS: Magnesium 1.8 mg/dL (1.6-2.6)
[2022-04-23] MEDS: Magnesium Oxide 400 MG TABLET PO SCH (18:01)
[2022-04-23] MEDS: Metoprolol XL (24 HR) Succ 50 MG TAB.ER.24H PO SCH (19:46)
[2022-04-24 04:33] LABS: INR 1.4; Prothrombin Time 16.1 Seconds (9.4-12.1)
[2022-04-24 04:35] LABS: Basophils % 0.5 %; Eosinophils # 0.1 K/mcL (0.0-0.6); Eosinophils % 1.3 %; Hemoglobin 15.1 g/dL (12.9-16.9); Immature Granulocytes % 0.2 % (0-4); Lymphocytes # 2.8 K/mcL (0.6-4.6); Lymphocytes % 50.5 %; Mean Corpuscular HGB Conc 33.6 g/dL (31.6-35.5); Mean Corpuscular Hemoglobin 31.3 pg (28.0-33.3); Mean Corpuscular Volume 93.2 fL (83.0-100.0); Mean Platelet Volume 11.3 fL (9.4-12.4); Monocytes # 0.5 K/mcL (0.0-1.3); Monocytes % 8.8 %; Neutrophils # 2.1 K/mcL (1.6-8.9); Platelet Count 141 K/mcL (140-400); Red Blood Count 4.83 M/mcL (4.19-5.50); Red Cell Distribution Width 11.9 % (11.5-14.5); Segmented Neutrophils % 38.7 %; White Blood Count 5.5 K/mcL (4.3-11.1)
[2022-04-24 05:24] LABS: BUN/Creatinine Ratio 18 (6-26); Blood Urea Nitrogen 22 mg/dL (6-20); Calcium 9.3 mg/dL (8.6-10.3); Carbon Dioxide 29 mEq/L (23-29); Chloride 102 mEq/L (98-107); Glucose 70 mg/dL (70-105); Magnesium 1.9 mg/dL (1.6-2.6); Osmolality,Calculated 288 (280-300); Potassium 4.1 mEq/L (3.5-5.1); Sodium 138 mEq/L (136-145); eGFR For African Americans > 60 (> 60); eGFR For Non-African Americans > 60 (> 60)
[2022-04-24 05:33] LABS: Thyroid Stimulating Hormone 3.848 mcIU/mL (0.340-5.600)
[2022-04-24] MEDS: Metoprolol XL (24 HR) Succ 50 MG TAB.ER.24H PO SCH ×2 (08:50→20:09)
[2022-04-24] MEDS: Magnesium Oxide 400 MG TABLET PO SCH (08:50)
[2022-04-24] MEDS ORDERED: Lidocaine Viscous Oral Soln 15 ML SOLUTION MM PRN (11:06)
[2022-04-24] MEDS ORDERED: 0.9 % Sodium Chloride 500 ML IVC SCH (11:15)
[2022-04-24] MEDS: *HR* FentaNYL (PF) 100 MCG/2 ML VIAL IVP PRN ×5 (11:38→12:05)
[2022-04-24] MEDS: *HR* Midazolam HCl 5 MG/5 ML VIAL IVP PRN ×5 (11:40→12:05)
[2022-04-24] MEDS ORDERED: *HR* Rivaroxaban 10 MG TABLET PO SCH (17:00)
[2022-04-24] MEDS: Sacubitril/Valsartan 24/26 MG 1 TABLET PO SCH (20:09)
[2022-04-25 06:18] VITALS: BP 124/85; TEMP 97.8; O2SAT 98
[2022-04-25] MEDS ORDERED: Spironolactone 12.5 MG TABLET PO SCH (09:30)
[2022-04-25 09:45] VITALS: PULSE 51
[2022-04-25] MEDS: Magnesium Oxide 400 MG TABLET PO SCH (09:51)
[2022-04-25] MEDS: Metoprolol XL (24 HR) Succ 50 MG TAB.ER.24H PO SCH (09:51)
[2022-04-25] MEDS: Sacubitril/Valsartan 24/26 MG 1 TABLET PO SCH (09:51)
== END 2022-04-25 10:26 | disposition home or self-care (01) ==
LOC: EMEROOARM 13:33 → 3BNU 13:33 → SUATTDRO 16:46 → 3BNU 17:45
PROVIDERS: ADMIT Internal Medicine; ATTEND Internal Medicine

== ENCOUNTER 2022-07-23 07:15 | Observation (INO) ==
[2022-07-23] MEDS ORDERED: 0.9 % Sodium Chloride 1,000 ML ONE ×2 (07:18→08:01)
[2022-07-23] MEDS ORDERED: *HR* Midazolam HCl 2 MG/2 ML VIAL ONE (07:57)
[2022-07-23] MEDS ORDERED: *HR* FentaNYL (PF) 100 MCG/2 ML VIAL ONE (07:57)
[2022-07-23] MEDS ORDERED: Ondansetron 4 MG/2 ML VIAL IVP PRN (07:58)
[2022-07-23] MEDS ORDERED: *HR* FentaNYL (PF) 100 MCG/2 ML VIAL IVP PRN (07:58)
[2022-07-23] MEDS ORDERED: Protamine Sulfate 50 MG/5 ML VIAL IVP ONE (08:00)
[2022-07-23] MEDS ORDERED: *HR* Heparin 10,000 UNIT/10 ML VIAL ONE ×2 (08:01→08:05)
[2022-07-23] MEDS ORDERED: Heparin 1,000 UNITS/500 mL 2,000 ML ONE (08:01)
[2022-07-23] MEDS ORDERED: Iopamidol - 370 200 ML INFUS..BTL ONE (08:02)
[2022-07-23] MEDS ORDERED: Lidocaine -MPF 2% 5 ML VIAL SQ ONE (09:00)
[2022-07-23] MEDS ORDERED: EPHEDrine sulfate 50 MG/10 ML VIAL IVP ONE (09:00)
[2022-07-23] MEDS ORDERED: *HR* Phenylephrine 10 MG/ML VIAL IVC ONE (09:00)
[2022-07-23] MEDS ORDERED: *HR* Succinylcholine 200 MG/10 ML VIAL IVP ONE (09:00)
[2022-07-23] MEDS ORDERED: *HR* Etomidate 20 MG/10 ML AMPUL IVP ONE (09:00)
[2022-07-23] MEDS ORDERED: *HR* Propofol 200 MG/20 ML VIAL IVP ONE (09:00)
[2022-07-23] MEDS ORDERED: Ondansetron 4 MG/2 ML VIAL IVP ONE (09:00)
[2022-07-23] MEDS ORDERED: Naloxone 0.4 MG/ML INJ IVP PRN (11:14)
[2022-07-23] MEDS ORDERED: Acetaminophen 325 MG TABLET PO PRN (11:14)
[2022-07-23] MEDS ORDERED: *HR* OxyCODONE Immed Rel 5 MG TABLET PO PRN (11:14)
[2022-07-23] MEDS: Metoprolol XL (24 HR) Succ 50 MG TAB.ER.24H PO SCH (20:15)
[2022-07-24 04:52] VITALS: O2SAT 97
[2022-07-24] MEDS ORDERED: Dapagliflozin Propanediol [Farxiga] 10 MG Tablet PO SCH (09:00)
[2022-07-24] MEDS ORDERED: Spironolactone 12.5 MG TABLET PO SCH (09:00)
[2022-07-24] MEDS ORDERED: *HR* Rivaroxaban 10 MG TABLET PO SCH ×2 (09:00→17:00)
[2022-07-24 09:06] VITALS: BP 109/65; PULSE 72; TEMP 98
[2022-07-24] MEDS: Metoprolol XL (24 HR) Succ 50 MG TAB.ER.24H PO SCH (09:07)
== END 2022-07-24 10:47 | disposition home or self-care (01) ==
LOC: INVDIALAB 07:15 → INTOOBSV 12:54 → 2NENU 12:54
PROVIDERS: ADMIT Internal Medicine Clinical Cardiac Electrophysiology; ATTEND Internal Medicine Clinical Cardiac Electrophysiology